=== PATIENT | female | born 1985 | race Caucasian/White ===

== ENCOUNTER 2018-11-23 06:27 | Day surgery (SDC) | payer BC ==
[~2018-11-23 06:27] MED LIST: Buffered Lidocaine 1% SYRIN* 1 ML/SYRINGE INTRADERM ONE; Dexamethasone IV* 4 MG/ML 1 ML (4 MG) IV SLOW PU ONE; Famotidine IV* 10 MG/ML 2 ML (20 mg) IV ONE; Lactated Ringers 1000 ML Bag* 1,000 ML IV SCH
[2018-11-23] MEDS ORDERED: Dexamethasone IV* 4 MG/ML 1 ML (4 MG) ONE (07:13)
[2018-11-23] MEDS ORDERED: Famotidine IV* 10 MG/ML 2 ML (20 mg) ONE (07:13)
[2018-11-23 07:56] LABS: Hematocrit 42 % (35-47); Hemoglobin 14.5 g/dL (12.0-16.0); Mean Corpuscular HGB Conc 35 g/dL (31-36); Mean Corpuscular Hemoglobin 34 pg (27-31); Mean Corpuscular Volume 97 fL (80-97); Mean Platelet Volume 8.7 fL (7.4-10.4); Platelet Count 298 10^3/uL (150-450); Red Blood Count 4.34 10^6 /uL (3.70-4.87); Red Cell Distribution Width 13 % (10-15)
[2018-11-23] MEDS ORDERED: Midazolam* 1 MG/ML 5 ML VIAL (5 MG) ONE (08:34)
[2018-11-23] MEDS ORDERED: fentaNYL* 50 MCG/ML 2 ML VIAL (100 MCG VIAL) ONE (08:34)
[2018-11-23] MEDS ORDERED: Lidocaine 2% PF * 5 ML VIAL ONE (08:35)
[2018-11-23] MEDS ORDERED: Propofol* 10 MG/ML 20 ML BTL ONE (08:35)
[2018-11-23] MEDS ORDERED: Acetic Acid 0.25%* 250 ML BTL ONE (09:03)
[2018-11-23] MEDS ORDERED: Lidocaine 1% INJ* 10 MG/ML 30 ML SDV ONE (09:03)
[2018-11-23] MEDS ORDERED: Iodine Strong (LUGOL'S)* 14 ML BTL ONE (09:03)
[2018-11-23] MEDS ORDERED: Naloxone* 0.4 MG/ML 1 ML VIAL IV PRN (09:09)
[2018-11-23] MEDS ORDERED: HYDROcodone/ACETAMIN 5-325 MG* 1 TAB PO PRN (09:09)
[2018-11-23] MEDS ORDERED: Ketorolac INJ* 30 MG/ML 1 ML VIAL IV PRN (09:09)
[2018-11-23] MEDS ORDERED: DiMENhydriNATE IV* 50 MG/ML VIAL IV PUSH PRN (09:09)
[2018-11-23] MEDS ORDERED: fentaNYL* 50 MCG/ML 2 ML VIAL (100 MCG VIAL) IV PRN (09:09)
[2018-11-23] MEDS ORDERED: oxyCODONE/Acetamin 5/325 MG* TAB PO PRN (09:09)
[2018-11-23] MEDS ORDERED: Ondansetron INJ* 2 MG/ML VIAL ONE (09:47)
[2018-11-23] MEDS ORDERED: Ferric Subsulfate* 1 dose = 10 mL Solution TOPICAL ONE (10:00)
[2018-11-23] MEDS ORDERED: Ketorolac INJ* 30 MG/ML 1 ML VIAL ONE (10:39)
--- NOTE | 2018-11-23 10:58 | OP ---
CC: [facility] OPERATIVE REPORT: DATE OF OPERATION: 11/23/18 DATE OF : 85 SURGEON: Geneva Llanos MD. ANESTHESIOLOGIST: Dr. Ji. ANESTHESIA: Sedation and local. PRE-OP DIAGNOSES: Moderate cervical dysplasia, menorrhagia. POST-OP DIAGNOSES: Moderate cervical dysplasia, menorrhagia. OPERATIVE PROCEDURE: Colposcopy, Corona cone biopsy, endocervical curettage, and insertion of Mirena IUD. ESTIMATED BLOOD LOSS: Minimal, less than 50 cc. SPECIMENS: There were 4 specimens: 1. Cone biopsy, cut at 12 o'clock 2. Deeper biopsy at 12 o'clock. 3. Deeper biopsy at 3 o'clock. 4. Endocervical curettings. DRAINS: None. FINDINGS: Uterus sounds to 8, midline cervix, acetowhite changes surrounding the cervix most prominent from 9 o'clock to 3 o'clock. There was also Lugol's nonstaining in the same area. There were no abnormal vessels seen on colposcopy. COMPLICATIONS: None. COUNTS: Sponge, lap, and needle counts were correct x2. The Mirena is due to be removed November 2023. DESCRIPTION OF PROCEDURE: The patient was brought to the operating room. When sedation was found to be adequate, the patient was draped in the lithotomy position. No vaginal prep was done because we are going to do a colposcopy. Colposcopy was performed with the above findings noted. 1cc of Lidocaine was instilled at 2 o'clock and 10 o'clock. A Corona cone biopsy was performed, size large Corona cone. A deeper biopsy was done at 12 o'clock and another deeper biopsy at 3 o'clock, then endocervical curettage was performed. Hemostasis was achieved with a roller ball cautery. The cervix was then prepped with Betadine. Uterus sounded to 8. The Mirena was inserted without difficulty. The strings were trimmed to approximately 3 cm. Monsel solution was then applied. Excellent hemostasis was noted. All instruments were removed from the vagina and the patient was brought to the recovery room awake and in stable condition. [id number]/[facility] #: [id number] [facility]
[2018-11-23 11:16] VITALS: BP 142/92
== END 2018-11-23 11:10 | disposition home or self-care (01) ==
LOC: OR 06:27
PROVIDERS: ATTEND Obstetrics & Gynecology
DX: D06.0 Carcinoma in situ of endocervix (principal); N92.0 Excessive and frequent menstruation with regular cycle; Z72.0 Tobacco use; E78.5 Hyperlipidemia, unspecified; Z85.850 Personal history of malignant neoplasm of thyroid; Z30.430 Encounter for insertion of intrauterine contraceptive device
CPT/HCPCS: 36415; 81025; 85027; 86850; 86900; 86901; 88305; 88307; A9270-GY; J1100; J1885; J2250; J2405; J2704; J3010; J7300